=== PATIENT | male | born 1945 | race Caucasian/White ===

== ENCOUNTER 2018-09-09 10:54 | Observation (INO) ==
[2018-09-09] MEDS ORDERED: DILTIAZEM 50 MG/10 ML VIAL IV STA (11:19)
[2018-09-09] MEDS ORDERED: ENOXAPARIN 100 MG/ML SYRINGE SUBCUT STA (11:19)
[2018-09-09] MEDS ORDERED: DILTIAZEM 25 MG/5 ML VIAL IV ONE (11:28)
[2018-09-09] MEDS ORDERED: dilTIAZem Drip 125 MG/125 ML PREMIX IV SCH (11:30)
[2018-09-09 11:46] LABS: Basophils # 0.1 10*3/uL (0.0-0.2); Basophils % 0.8 % (0.0-0.8); Eosinophils # 0.4 10*3/uL (0.0-0.87); Eosinophils % 3.3 % (0.00-10.9); Hematocrit 51.6 VOL% (42.0-52.0); Hemoglobin 16.8 GM/DL (14.0-18.0); Immature Granulocytes % 0.4 %; Immature Granulocytes Absolute 0.04 #; Lymphocytes # 3.5 10*3/uL (1.4-4.0); Lymphocytes % 33.5 % (21.2-54.2); Mean Corpuscular HGB Conc 32.6 GM/DL (32-36); Mean Corpuscular Hemoglobin 29 PG (27-34); Mean Corpuscular Volume 89.3 FL (87-102); Mean Platelet Volume 9.8 FL (9.6-12.0); Monocytes % 9.3 % (1.7-12.7); Neutrophils # 5.5 10*3/uL (1.4-7.4); Neutrophils % 52.7 % (38.7-73.9); Platelet Count 405 T/CUMM (130-400); Red Blood Count 5.78 MC/CUMM (3.8-5.5); Red Cell Distribution Width 14.8 % (9.3-17.3); White Blood Count 10.5 T/CUMM (4-12)
[2018-09-09 11:55] LABS: PT Patient Result 11.2 SECS; Partial Thromboplastin Time 33.4 SECS (0-40)
[2018-09-09 12:52] LABS: Albumin 3.8 G/DL (3.4-5.0); Bilirubin,Total 0.4 MG/DL (0.2-1.0); Calcium 9.7 MG/DL (8.5-10.1); Osmolality,Calculated 274.8 MOS/KG (273-304); Potassium 4.6 MMOL/L (3.5-5.1); Thyroid Stimulating Hormone 2.52 uIU/ml (0.358-3.74)
[2018-09-09 12:59] LABS: Apearance,Urine Slightly Hazy (Clear); Bacteria,Urine Occasional /HPF (Few); Bilirubin,Urine Negative (Negative); Blood, Urine Negative (Negative); Glucose,Urine (UA) Negative (Negative); Ketones,Urine Negative (Negative); Mucus,Urine Few /LPF (Occasional); Nitrite,Urine Negative (Negative); Protein,Urine Negative; RBC,Urine 2 /HPF (0-4); Urine Color Yellow (Yellow); Urine Specific Gravity 1.021 (1.001-1.035); WBC,Urine 2 /HPF (0-6)
[2018-09-09 13:03] LABS: Barbiturates Screen,Urine Negative (Negative); Benzodiazepines Screen,Urine Negative (Negative); Cannabinoid Screen,Urine Negative (Negative); Opiate Screen,Urine Negative (Negative); Phencyclidine Screen,Urine Negative (Negative)
[2018-09-09] MEDS ORDERED: BISACODYL 5 MG TABLET PO PRN (13:32)
[2018-09-09] MEDS ORDERED: ZALEPLON 5 MG CAPSULE PO PRN (13:32)
[2018-09-09] MEDS ORDERED: MAGNESIUM SULF RIDER 2 GM in PREMIX 1 EACH IV PRN (13:32)
[2018-09-09] MEDS ORDERED: diphenhydrAMINE CAP 25 MG CAPSULE PO PRN (13:32)
[2018-09-09] MEDS ORDERED: MORPHINE 4 MG/1 ML VIAL IV PRN (13:32)
[2018-09-09] MEDS ORDERED: ACETAMINOPHEN 325 MG TABLET PO PRN (13:32)
[2018-09-09] MEDS ORDERED: DOCUSATE SODIUM 100 MG CAPSULE PO PRN (13:32)
[2018-09-09] MEDS ORDERED: guaiFENesin/DM ER 600-30 MG TABLET PO PRN (13:32)
[2018-09-09] MEDS ORDERED: NICOTINE 21 MG/24 HR PATCH TRANSDERM PRN (13:32)
[2018-09-09] MEDS ORDERED: MAGNESIUM SULF RIDER 4 GM in PREMIX 1 EACH IV PRN (13:32)
[2018-09-09] MEDS ORDERED: ONDANSETRON 4 MG/2 ML VIAL IV PRN (13:32)
[2018-09-09] MEDS ORDERED: POTASSIUM CHLORIDE 20 MEQ TABLET PO PRN (13:32)
[2018-09-09] MEDS ORDERED: LEVALBUTEROL 0.63 MG/3 ML NEB RESP TX PRN (16:13)
[2018-09-09] MEDS: PANTOPRAZOLE 40 MG TABLET PO SCH (16:29)
[2018-09-09] MEDS ORDERED: ENOXAPARIN 100 MG/ML SYRINGE SUBCUT SCH (21:00)
[2018-09-09] MEDS: APIXABAN 5 MG TABLET PO SCH (23:15)
[2018-09-09] MEDS: FLECAINIDE 50 MG TABLET PO SCH (23:15)
[2018-09-09] MEDS: ASCORBIC ACID 500 MG TABLET PO SCH (23:15)
[2018-09-10 05:30] LABS: Basophils # 0.1 10*3/uL (0.0-0.2); Basophils % 0.8 % (0.0-0.8); Eosinophils # 0.4 10*3/uL (0.0-0.87); Eosinophils % 3.7 % (0.00-10.9); Hematocrit 43.6 VOL% (42.0-52.0); Immature Granulocytes % 0.4 %; Immature Granulocytes Absolute 0.04 #; Lymphocytes # 4.3 10*3/uL (1.4-4.0); Lymphocytes % 42.9 % (21.2-54.2); Mean Corpuscular HGB Conc 32.8 GM/DL (32-36); Mean Corpuscular Hemoglobin 29 PG (27-34); Mean Corpuscular Volume 89.5 FL (87-102); Mean Platelet Volume 10.5 FL (9.6-12.0); Monocytes # 0.9 10*3/uL (0.11-0.8); Monocytes % 8.5 % (1.7-12.7); Neutrophils # 4.4 10*3/uL (1.4-7.4); Neutrophils % 43.7 % (38.7-73.9); Platelet Count 361 T/CUMM (130-400); Red Blood Count 4.87 MC/CUMM (3.8-5.5); Red Cell Distribution Width 14.6 % (9.3-17.3); White Blood Count 10.1 T/CUMM (4-12)
[2018-09-10 05:32] LABS: Hemoglobin 14.3 GM/DL (14.0-18.0)
[2018-09-10 05:38] LABS: Calcium 8.9 MG/DL (8.5-10.1); Osmolality,Calculated 274.8 MOS/KG (273-304); Potassium 3.7 MMOL/L (3.5-5.1)
[2018-09-10] MEDS ORDERED: LEVOTHYROXINE 100 MCG TABLET PO SCH (07:00)
[2018-09-10 08:13] VITALS: BP 112/68
[2018-09-10] MEDS ORDERED: POTASSIUM CHLORIDE 20 MEQ TABLET PO SCH (09:00)
[2018-09-10] MEDS ORDERED: ASPIRIN EC 81 MG TABLET PO SCH (09:00)
[2018-09-10] MEDS ORDERED: ATORVASTATIN 20 MG TABLET PO SCH (09:00)
[2018-09-10] MEDS ORDERED: ASPIRIN EC 325 MG TABLET PO SCH (09:00)
[2018-09-10] MEDS ORDERED: DILTIAZEM CD 180 MG CAPSULE PO SCH (09:00)
[2018-09-10] MEDS: FLECAINIDE 50 MG TABLET PO SCH (09:27)
[2018-09-10] MEDS: APIXABAN 5 MG TABLET PO SCH (09:27)
[2018-09-10] MEDS: ASCORBIC ACID 500 MG TABLET PO SCH (09:27)
[2018-09-10] MEDS: PANTOPRAZOLE 40 MG TABLET PO SCH (09:28)
== END 2018-09-10 11:40 | disposition home or self-care (01) ==
LOC: N.EDINP 10:54 → N.ED 10:54 → N.EDINP 14:52 → N.TELES 14:58
PROVIDERS: ADMIT Internal Medicine Cardiovascular Disease; ATTEND Internal Medicine Cardiovascular Disease

== ENCOUNTER 2020-08-03 22:04 | Observation (INO) ==
[2020-08-03 23:30] LABS: Basophils # 0.1 10*3/uL (0.0-0.2); Basophils % 0.6 % (0.0-0.8); Eosinophils # 0.4 10*3/uL (0.0-0.87); Eosinophils % 3.1 % (0.00-10.9); Hematocrit 45.8 VOL% (42.0-52.0); Hemoglobin 15.3 GM/DL (14.0-18.0); Immature Granulocytes % 0.3 %; Immature Granulocytes Absolute 0.03 #; Lymphocytes # 4.1 10*3/uL (1.4-4.0); Lymphocytes % 35.6 % (21.2-54.2); Mean Corpuscular HGB Conc 33.4 GM/DL (32-36); Mean Corpuscular Volume 90.9 FL (87-102); Mean Platelet Volume 10.2 FL (9.6-12.0); Monocytes % 8.8 % (1.7-12.7); Neutrophils % 51.6 % (38.7-73.9); Platelet Count 395 T/CUMM (130-400); Red Blood Count 5.04 MC/CUMM (3.8-5.5); Red Cell Distribution Width 14.5 % (9.3-17.3); White Blood Count 11.5 T/CUMM (4-12)
[2020-08-03 23:38] LABS: Albumin 3.6 G/DL (3.4-5.0); Bilirubin,Total 0.4 MG/DL (0.2-1.0); Calcium 8.8 MG/DL (8.5-10.1); Osmolality,Calculated 283.3 MOS/KG (273-304); Total Protein 7.5 G/DL (6.4-8.3)
[2020-08-03 23:44] LABS: PT Patient Result 10.9 SECS (9.8-11.9); Partial Thromboplastin Time 33.7 SECS (23.9-33.8)
[2020-08-04 00:09] LABS: Bilirubin,Urine Negative (Negative); Blood, Urine Negative (Negative); Glucose,Urine (UA) Negative (Negative); Ketones,Urine Negative (Negative); Mucus,Urine Occasional /LPF (Occasional); Nitrite,Urine Negative (Negative); Protein,Urine Negative; RBC,Urine 3 /HPF (0-4); Squamous Epithelial Cell,Urine Occasional /HPF (0-10); Urine Appearance CLEAR (Clear); Urine Color Yellow (Yellow); Urine Specific Gravity 1.025 (1.001-1.035); Urine Urobilinogen < 2.0 EU/DL (0.2-1.0); WBC,Urine 2 /HPF (0-6)
[2020-08-04] MEDS ORDERED: ONDANSETRON 4 MG/2 ML VIAL IV PRN (02:02)
[2020-08-04] MEDS ORDERED: GLUCAGON 1 MG VIAL IM PRN (02:02)
[2020-08-04] MEDS ORDERED: DEXTROSE 50% 25 GM/50 ML SYRINGE IV PRN (02:02)
[2020-08-04] MEDS ORDERED: ACETAMINOPHEN 325 MG TABLET PO PRN (02:02)
[2020-08-04] MEDS ORDERED: ZALEPLON 5 MG CAPSULE PO PRN (02:02)
[2020-08-04 06:27] LABS: Hematocrit 40.2 VOL% (42.0-52.0); Hemoglobin 13.5 GM/DL (14.0-18.0)
[2020-08-04] MEDS: PANTOPRAZOLE 40 MG TABLET PO SCH (08:21)
[2020-08-04 12:51] LABS: Hematocrit 40.2 VOL% (42.0-52.0); Hemoglobin 13.3 GM/DL (14.0-18.0)
[2020-08-04] MEDS ORDERED: CYANOCOBALAMIN 1000 MCG/1 ML VIAL IM SCH (15:00)
[2020-08-04] MEDS ORDERED: ATORVASTATIN 40 MG TABLET PO SCH (15:27)
[2020-08-04] MEDS: FLECAINIDE 50 MG TABLET PO SCH ×2 (15:39→21:25)
[2020-08-04] MEDS: ASCORBIC ACID 500 MG TABLET PO SCH ×2 (15:39→21:25)
[2020-08-04 18:18] LABS: Hematocrit 41.1 VOL% (42.0-52.0); Hemoglobin 13.4 GM/DL (14.0-18.0)
[2020-08-04] MEDS: ATORVASTATIN 40 MG TABLET PO SCH (21:26)
[2020-08-05 00:49] LABS: Hematocrit 37.4 VOL% (42.0-52.0); Hemoglobin 12.5 GM/DL (14.0-18.0)
[2020-08-05] MEDS: LEVOTHYROXINE 100 MCG TABLET PO SCH (05:44)
[2020-08-05] MEDS: ASCORBIC ACID 500 MG TABLET PO SCH ×2 (09:43→20:47)
[2020-08-05] MEDS: POTASSIUM CHLORIDE 20 MEQ TABLET PO SCH (09:43)
[2020-08-05] MEDS: PANTOPRAZOLE 40 MG TABLET PO SCH (09:43)
[2020-08-05] MEDS: FLECAINIDE 50 MG TABLET PO SCH ×2 (09:44→20:46)
[2020-08-05] MEDS ORDERED: POLYETHYLENE GLYCOL POWDER 17 GM PACK PO SCH (13:00)
[2020-08-05 15:25] LABS: Hematocrit 34.5 VOL% (42.0-52.0); Hemoglobin 11.4 GM/DL (14.0-18.0)
[2020-08-05] MEDS: BISACODYL 5 MG TABLET PO SCH ×2 (15:52→22:43)
[2020-08-05] MEDS ORDERED: POLYETHYLENE GLYCOL POWDER 255 GM BOTTLE PO ONE (18:00)
[2020-08-05] MEDS: ATORVASTATIN 40 MG TABLET PO SCH (20:48)
[2020-08-05] MEDS ORDERED: MAGNESIUM CITRATE 300 ML BOTTLE PO ONE (21:00)
[2020-08-05 23:21] LABS: Hematocrit 34.7 VOL% (42.0-52.0); Hemoglobin 11.8 GM/DL (14.0-18.0)
[2020-08-06] MEDS: LEVOTHYROXINE 100 MCG TABLET PO SCH (05:35)
[2020-08-06 05:57] LABS: Basophils # 0.1 10*3/uL (0.0-0.2); Basophils % 0.5 % (0.0-0.8); Eosinophils # 0.3 10*3/uL (0.0-0.87); Eosinophils % 2.5 % (0.00-10.9); Hematocrit 32.8 VOL% (42.0-52.0); Hemoglobin 11.2 GM/DL (14.0-18.0); Immature Granulocytes % 0.4 %; Immature Granulocytes Absolute 0.04 #; Lymphocytes # 3.4 10*3/uL (1.4-4.0); Lymphocytes % 30.1 % (21.2-54.2); Mean Corpuscular HGB Conc 34.1 GM/DL (32-36); Mean Corpuscular Volume 89.1 FL (87-102); Mean Platelet Volume 10.3 FL (9.6-12.0); Monocytes % 7.2 % (1.7-12.7); Neutrophils % 59.3 % (38.7-73.9); Platelet Count 364 T/CUMM (130-400); Red Blood Count 3.68 MC/CUMM (3.8-5.5); Red Cell Distribution Width 13.8 % (9.3-17.3); White Blood Count 11.2 T/CUMM (4-12)
[2020-08-06 06:24] LABS: Albumin 3.5 G/DL (3.4-5.0); Bilirubin,Total 1.4 MG/DL (0.2-1.0); Calcium 8.7 MG/DL (8.5-10.1); Osmolality,Calculated 273.8 MOS/KG (273-304)
[2020-08-06] MEDS: BISACODYL 5 MG TABLET PO SCH (07:07)
[2020-08-06 07:37] LABS: Hemoglobin 11.4 GM/DL (14.0-18.0)
[2020-08-06] MEDS ORDERED: LIDOCAINE 2% 5 ML VIAL ONE (08:16)
[2020-08-06] MEDS ORDERED: PHENYLEPHRINE 1 MG/10 ML SYRINGE IV ONE ×2 (08:16→08:20)
[2020-08-06] MEDS ORDERED: propofoL 200 MG/20 ML VIAL IV ONE (08:16)
[2020-08-06] MEDS: PANTOPRAZOLE 40 MG TABLET PO SCH (10:12)
[2020-08-06] MEDS: FLECAINIDE 50 MG TABLET PO SCH ×2 (10:12→21:22)
[2020-08-06] MEDS: POTASSIUM CHLORIDE 20 MEQ TABLET PO SCH (10:13)
[2020-08-06] MEDS: ASCORBIC ACID 500 MG TABLET PO SCH ×2 (11:50→21:22)
[2020-08-06 14:10] LABS: Hematocrit 33.1 VOL% (42.0-52.0); Hemoglobin 11.2 GM/DL (14.0-18.0)
[2020-08-06] MEDS: ATORVASTATIN 40 MG TABLET PO SCH (21:22)
[2020-08-06 22:29] LABS: Hematocrit 31.4 VOL% (42.0-52.0); Hemoglobin 10.5 GM/DL (14.0-18.0)
[2020-08-07 05:37] LABS: Basophils # 0.1 10*3/uL (0.0-0.2); Basophils % 0.6 % (0.0-0.8); Eosinophils # 0.3 10*3/uL (0.0-0.87); Eosinophils % 2.9 % (0.00-10.9); Hemoglobin 9.7 GM/DL (14.0-18.0); Immature Granulocytes % 0.3 %; Immature Granulocytes Absolute 0.03 #; Lymphocytes # 3.8 10*3/uL (1.4-4.0); Lymphocytes % 36.5 % (21.2-54.2); Mean Corpuscular HGB Conc 33.4 GM/DL (32-36); Mean Corpuscular Volume 90.3 FL (87-102); Mean Platelet Volume 10.4 FL (9.6-12.0); Monocytes % 8.8 % (1.7-12.7); Neutrophils % 50.9 % (38.7-73.9); Platelet Count 306 T/CUMM (130-400); Red Blood Count 3.21 MC/CUMM (3.8-5.5); Red Cell Distribution Width 13.7 % (9.3-17.3); White Blood Count 10.5 T/CUMM (4-12)
[2020-08-07 05:53] LABS: Alanine Aminotransferase 36 U/L (16-61); Alkaline Phosphatase 104 U/L (45-117); Aspartate Amino Transferase 19 U/L (0-37); Bilirubin,Total < 0.39 MG/DL (0.2-1.0); Blood Urea Nitrogen 15 MG/DL (7-18); Calcium 8.1 MG/DL (8.5-10.1); Estimated Glom Filtration Rate 89 ML/MIN; Glucose 93 MG/DL (74-106); Osmolality,Calculated 277.5 MOS/KG (273-304); Total Protein 6.3 G/DL (6.4-8.3)
[2020-08-07] MEDS: LEVOTHYROXINE 100 MCG TABLET PO SCH (06:09)
[2020-08-07 07:38] VITALS: BP 95/53
[2020-08-07] MEDS: POTASSIUM CHLORIDE 20 MEQ TABLET PO SCH (08:45)
[2020-08-07] MEDS: FLECAINIDE 50 MG TABLET PO SCH (08:45)
[2020-08-07] MEDS: PANTOPRAZOLE 40 MG TABLET PO SCH (08:45)
[2020-08-07] MEDS: ASCORBIC ACID 500 MG TABLET PO SCH (08:45)
[2020-08-07] MEDS: LACTATED RINGERS 1,000 ML IV SCH (08:53)
== END 2020-08-07 12:56 | disposition home or self-care (01) ==
LOC: N.EDINP 22:04 → N.ED 22:04 → SUATTDRO 08-04 02:02 → N.3E 08-04 02:25
PROVIDERS: ADMIT Family Medicine; ATTEND Internal Medicine